=== PATIENT | male | born 1985 | race Caucasian/White ===

== ENCOUNTER 2019-07-13 18:18 | Emergency (ER) | payer MEDICAID ==
[~2019-07-13] VITALS: Ht 160 cm; Wt 66.2 kg
[2019-07-13 22:44] VITALS: BP 115/76
== END 2019-07-13 22:45 | disposition home or self-care (01) ==
LOC: ED 18:18
DX: R42 Dizziness and giddiness (principal); H92.03 Otalgia, bilateral